=== PATIENT | female | born 2005 | race Caucasian/White ===

== ENCOUNTER → 2024-05-20 | Outpatient (REF) | LOC: M EMP 09:30 | PROVIDERS: ATTEND Family Medicine | DX: Z11.52 Encounter for screening for COVID-19 (principal) ==

== ENCOUNTER → 2024-09-29 | Outpatient (REF) | payer MEDICAID, SELFPAY | LOC: M LAB REF 16:51 | PROVIDERS: ATTEND Physician Assistant | DX: B34.9 Viral infection, unspecified (principal) ==

== ENCOUNTER 2025-03-06 14:17 | Emergency (ER) | payer OTHER, SELFPAY ==
[~2025-03-06] VITALS: Ht 165.1 cm; Wt 81.8 kg
[2025-03-06 17:45] VITALS: BP 121/79; TEMP 97.1; O2SAT 100
[2025-03-06 18:37] LABS: KETONE, URINE AUTO RFX NEGATIVE (NEGATIVE); LEUKOCYTE ESTERASE UR AUTO RFX 1+ (NEGATIVE); MUCUS, URINE RFX SMALL (NEGATIVE); NITRITE, URINE AUTO RFX NEGATIVE (NEGATIVE); RBC, URINE AUTO RFX 3 /HPF (0-3); SQUAM EPITHELIAL CELL UR AURFX 14 /HPF (0-6); WBC, URINE AUTO RFX 4 /HPF (0-3)
[2025-03-06 18:50] LABS: HCG, SERUM QUALITATIVE NEGATIVE (NEGATIVE)
== END 2025-03-06 18:56 | disposition home or self-care (01) ==
LOC: M ED 14:17
DX: R35.0 Frequency of micturition (principal); Z32.02 Encounter for pregnancy test, result negative

== ENCOUNTER → 2025-06-22 | Outpatient (CLI) | payer OTHER | LOC: M SOG 08:05 | PROVIDERS: ATTEND Orthopaedic Surgery | DX: Z53.9 Procedure and treatment not carried out, unspecified reason (principal) ==